=== PATIENT | male | born 1980 | race Caucasian/White ===

== ENCOUNTER 2018-10-07 10:11 | Emergency (ER) | payer MEDICAID ==
[~2018-10-07] VITALS: Ht 193 cm; Wt 142.7 kg
[~2018-10-07 10:11] MED LIST: COL100C PO; COU4T PO; DIPH-423 PO; ENOX60SY7 SUBCUT; NO HOME MEDS; WARF5TAB PO
[2018-10-07 10:35] VITALS: BP 136/89
== END 2018-10-07 12:18 | disposition left against medical advice (07) ==
LOC: ER 10:11
DX: M79.672 Pain in left foot (principal); Z53.21 Procedure and treatment not carried out due to patient leaving prior to being seen by health care provider